=== PATIENT | female | born 1975 | race Caucasian/White ===

== ENCOUNTER 2022-02-18 20:09 | Emergency (ER) | payer MEDICAID, SELFPAY ==
--- NOTE | ~2022-02-18 | CT_ITS ---
EXAMINATION: CT ABDOMEN AND PELVIS WITHOUT CONTRAST CLINICAL INFORMATION: Right flank pain, rule out stone COMPARISON: CT abdomen pelvis 12/01/2008 TECHNIQUE: Multidetector volumetric imaging was performed from the superior aspect of the liver through the pubic symphysis. Sagittal and coronal reformatted images were obtained on the technologist's workstation. This CT examination was performed using dose optimization techniques as appropriate, variously including the following: *Automated exposure control *Adjustment of mA and/or kV according to patient size (this includes techniques or standardized protocols for targeted exams where dose is matched to indication/reason for exam; i.e. extremities or head) *Use of iterative reconstruction technique DLP: 658 mGy-cm FINDINGS: LUNG BASES: Calcified granuloma in the right middle lobe. Partially imaged right lower lobe pulmonary micronodule new from remote priors, 4:1. ABDOMINAL AND PELVIC WALL: Single ventral pelvic soft tissue surgical clip. LIVER AND BILIARY TREE: Unremarkable. GALLBLADDER: Status post cholecystectomy. PANCREAS: Unremarkable. SPLEEN: Unremarkable. ADRENAL GLANDS: Unremarkable. KIDNEYS AND URETERS: There is asymmetric right periureteral inflammatory stranding without deepa hydronephrosis raising suspicion for an obstructing or recently passed stone. The distal ureters were difficult to follow throughout their course in entirety making it difficult to identify with certainty if an obstructing stone remains present, however there are several calcifications in the right pelvis measuring 4 mm or less which could potentially reflect a stone, alternatively phleboliths. GASTROINTESTINAL TRACT: Small hiatal hernia. Colonic diverticulosis without evidence of diverticulitis. Normal appendix. VASCULAR: Unremarkable. LYMPH NODES/PERITONEUM: No lymphadenopathy. FREE FLUID: Trace simple physiologic volume free fluid in the pelvis. BLADDER: Unremarkable. PELVIC VISCERA: Multiple presacral surgical clips. OSSEOUS STRUCTURES: L5-S1 interbody disc spacer. CT/CT abdomen pelvis wo IV con IMPRESSION: * There is asymmetric right periureteral inflammatory stranding without deepa hydronephrosis raising suspicion for recently passed stone or possibly an obstructing stone. The distal ureters were difficult to follow throughout their course in entirety making it difficult to identify with certainty if an obstructing stone remains present, however there are several calcifications in the right pelvis measuring 4 mm or less which could potentially reflect a ureteral stone, alternatively phleboliths. Consider correlation with urinalysis and clinical symptoms. * Partially imaged right lower lobe pulmonary micronodule new from remote priors. Assuming patient has no history of malignancy, recommend follow-up per Fleischner Society recommendations. According to the UPDATED 2017 Fleischner Society recommendations, the advised followup imaging for solid nodules < 6 mm is: LOW RISK PATIENT: No routine follow up. HIGH RISK PATIENT: Optional CT at 12 months.
--- NOTE | ~2022-02-18 | US_ITS ---
EXAMINATION: US PELVIS CLINICAL INFORMATION: Pain COMPARISON: None TECHNIQUE: Ultrasound of the pelvis is performed using both transabdominal and transvaginal transducers along with Doppler. Transvaginal imaging is performed due to inadequate visualization transabdominally. FINDINGS: The uterus is measuring 8.1 x 4.1 x 4.5 cm. The endometrial thickness is measured at 1.2 cm characterized by mixed echogenicity. Probable small fibroid in the fundal region.. Measures 1.3 x 1.6 cm. The right ovary is 2.3 x 1.1 x 1.9 cm. Volume 2.5 mL. Normal ovarian vascularity. The left ovary is measuring 3.3 x 2 x 2.1 cm. Volume 7 mL. Vascularity is felt to be within normal limits. There is a small 1.5 x 1.4 cm cyst associated with the left ovary which is mildly complex. Mild free fluid adjacent to the fundus is noted. US/US pelvic and transvaginal IMPRESSION: No ultrasonographic evidence for ovarian torsion. Small cyst associated with left ovary is noted. Endometrial thickness is 1.2 cm characterized by mixed echogenicity. This could be normal for later phase of the cycle. Otherwise hyperplasia, polyp formation or other would be considered.
--- NOTE | ~2022-02-18 | US_ITS ---
EXAMINATION: US PELVIS CLINICAL INFORMATION: Pain COMPARISON: None TECHNIQUE: Ultrasound of the pelvis is performed using both transabdominal and transvaginal transducers along with Doppler. Transvaginal imaging is performed due to inadequate visualization transabdominally. FINDINGS: The uterus is measuring 8.1 x 4.1 x 4.5 cm. The endometrial thickness is measured at 1.2 cm characterized by mixed echogenicity. Probable small fibroid in the fundal region.. Measures 1.3 x 1.6 cm. The right ovary is 2.3 x 1.1 x 1.9 cm. Volume 2.5 mL. Normal ovarian vascularity. The left ovary is measuring 3.3 x 2 x 2.1 cm. Volume 7 mL. Vascularity is felt to be within normal limits. There is a small 1.5 x 1.4 cm cyst associated with the left ovary which is mildly complex. Mild free fluid adjacent to the fundus is noted. US/US pelvic ovarian doppler IMPRESSION: No ultrasonographic evidence for ovarian torsion. Small cyst associated with left ovary is noted. Endometrial thickness is 1.2 cm characterized by mixed echogenicity. This could be normal for later phase of the cycle. Otherwise hyperplasia, polyp formation or other would be considered.
[2022-02-18 20:13] VITALS: BP 168/100; PULSE 86; RESP 18; TEMP 37; O2SAT 98; BMI 33.5
[2022-02-18 20:28] LABS: MANUAL DIFF FLAG NO
[2022-02-18 20:33] LABS: Basophils Absolute Auto 0.1 X10*3/uL (0.0-0.2); Basophils Percent Auto 0.7 % (0-2); Eosinophils Absolute Auto 0.1 X10*3/uL (0.0-0.4); Hematocrit 37.1 % (37.0-47.0); Hemoglobin 12.3 g/dl (12.0-16.0); Imm Gran Abs Auto 0.02 X10*3/uL (0.00-0.03); Imm Gran Pct Auto 0.2 % (0.0-0.4); Lymphocytes Absolute Auto 3.6 X10*3/uL (1.2-4.9); Lymphocytes Percent Auto 33.6 % (20-40); Mean Corpuscular HGB Conc 33.2 g/dl (31.0-35.0); Mean Corpuscular Hemoglobin 31.2 pg (27.0-33.0); Mean Corpuscular Volume 94.2 fL (80.0-98.0); Mean Platelet Volume 10.5 fL (9.4-12.3); Monocytes Absolute Auto 0.8 X10*3/uL (0.1-1.2); Monocytes Percent Auto 7.5 % (2-11); Neutrophils Absolute Auto 6.1 x10*3/uL (2.0-8.3); Platelet Count 287 X10*3/uL (160-400); Red Blood Count 3.94 X10*6/uL (4.20-5.50); Red Cell Distribution Width 12.8 % (11.0-16.0); White Blood Count 10.7 X10*3/uL (4.8-10.8)
[2022-02-18 20:36] LABS: Appearance Urine Hazy; Color Urine Yellow; Glucose Urine UA Negative (Negative); Leukocyte Esterase Urine Moderate (2+) (Negative); Nitrite Urine Positive (Negative); PH 6.5 (5.0-9.0); Specific Gravity - Urine 1.025 (1.005-1.025); UMIC TRIGGER UACC YES; UPreg QC Valid YES; Urine Blood Large (3+) (Negative); Urine Ketones Negative (Negative); Urine Pregnancy NEGATIVE (NEGATIVE); Urine Protein 100 (2+) mg/dL (Neg-Trace)
[2022-02-18 20:45] LABS: COVID-19 Test Negative (Negative)
[2022-02-18 21:00] LABS: Alanine Aminotransferase 8 U/L (0-31); Albumin Level 4.4 g/dL (3.5-5.0); Alkaline Phosphatase 58 U/L (39-117); Anion Gap 17 (12-20); Aspartate Amino Transferase 15 U/L (5-31); Bilirubin Direct < 0.2 mg/dL (0.0-0.5); Bilirubin Total 0.2 mg/dL (0.0-1.0); Blood Urea Nitrogen 9 mg/dL (9-16); Calcium 9.6 mg/dL (8.4-10.2); Carbon Dioxide 23 mmol/L (22-29); Chloride 106 mmol/L (96-108); Creatinine Clr Calc Pharmacy 92.5; Estimated Glomerular Filt Rate > 60; Glucose Random 97 mg/dL (60-115); Lipase 38 U/L (8-78); Potassium 4.8 mmol/L (3.3-5.1); Sodium 141 mmol/L (135-145); Total Protein 7.2 g/dL (6.5-8.0)
[2022-02-18 21:21] LABS: UACC Culture Trigger YES; WBC Urine >50 /HPF (0-5)
[2022-02-18 21:22] LABS: Bacteria Urine 2+ (None Seen); Hyaline Casts Urine 0-2 /LPF (0-2); WBC Clumps Urine Present
[2022-02-18 21:52] VITALS: BP 128/86; PULSE 72; RESP 18; TEMP 37.2; O2SAT 99
--- NOTE | 2022-02-18 21:52 | ED.ABDPAIN ---
HPI - Abdominal Pain General Chief Complaint: Abdominal Pain Stated Complaint: Cyst on ovary, in pain Time Seen by Provider: 02/18/22 21:48 Source: patient Mode of arrival: ambulatory Limitations: no limitations History of Present Illness HPI narrative: Patient with dysuria frequency for last 3 4 days seen her PCP today start her on Macrobid. Earlier today patient noticed sudden onset of pain on the right side with no history of kidney stone assure nausea vomited 1 time no fever no chills no hematuria no history of kidney stone Related Data Previous Rx's Medication Instructions Recorded tramadol 50 mg tablet 50 mg PO Q6H PRN pain #20 tabs 02/19/22 Allergies Allergy/AdvReac Type Severity Reaction Status Date / Time No Known Allergies Allergy Unverified 01/10/20 16:58 Review of Systems Review of Systems Yes all other systems are reviewed and are negative [facility] Social History Social History Advance Directives: No Advance Directives Information Provided: No Physical Exam ED Vital Signs: Vital Signs - 24 hr 02/18/22 20:13 02/18/22 21:52 02/18/22 23:46 Temperature 98.6 F 98.9 F 98.1 F Pulse Rate 86 72 65 Respiratory Rate 18 18 16 Blood Pressure 168/100 H 128/86 136/82 Pulse Oximetry 98 99 97 Oxygen Delivery Method Room Air Room Air Room Air BMI result Body Mass Index 33.5 Appearance: Alert. Oriented X3. No acute distress. ENT: Pharynx normal. Oral Mucosa moist Neck: Normal inspection. Neck supple. CVS: Normal heart rate and rhythm. Pulses normal. Respiratory: No respiratory distress. Equal air entry bilateral, no wheezing/rales/rhonchi Abdomen: Soft and nontender. Bowel sounds are present, no mass palpable, right CVA tenderness Skin: Skin warm and dry. Normal skin color. Normal skin turgor. Extremities: No lower extremity edema. No calf tenderness Neuro: Oriented X 3. No motor deficit. No sensory deficit.No cerebellar signs , cranial nerves II-XII intact MDM - Abdominal Pain MDM Narrative Medical decision making narrative: Patient with UTI with right renal colic likely had a stone which passed given extra dose of IV antibiotic Rocephin CT scan negative for obstructing kidney stone likely she already passed the stone Lab Data Attestation: I reviewed the patient's lab results. Result diagrams: 02/18/22 20:22 02/18/22 20:22 Labs: Lab Results 02/18/22 02/18/22 02/18/22 Range/Units 20:22 20:22 20:22 WBC 10.7 (4.8-10.8) X10*3/uL RBC 3.94 L (4.20-5.50) X10*6/uL Hgb 12.3 (12.0-16.0) g/dl Hct 37.1 (37.0-47.0) % MCV 94.2 (80.0-98.0) fL MCH 31.2 (27.0-33.0) pg MCHC 33.2 (31.0-35.0) g/dl RDW 12.8 (11.0-16.0) % Plt Count 287 (160-400) X10*3/uL MPV 10.5 (9.4-12.3) fL Immature Gran % (Auto) 0.2 (0.0-0.4) % Neut % (Auto) 57.0 (45-73) % Lymph % (Auto) 33.6 (20-40) % [place] % (Auto) 7.5 (2-11) % Eos % (Auto) 1.0 (0-4) % Baso % (Auto) 0.7 (0-2) % Lymph # (Auto) 3.6 (1.2-4.9) X10*3/uL [place] # (Auto) 0.8 (0.1-1.2) X10*3/uL Eos # (Auto) 0.1 (0.0-0.4) X10*3/uL Baso # (Auto) 0.1 (0.0-0.2) X10*3/uL Abs Immat Gran (auto) 0.02 (0.00-0.03) X10*3/uL Absolute Neuts (auto) 6.1 (2.0-8.3) x10*3/uL Absolute Nucleated RBC 0.000 (0.0-0.012) X10*3/uL Nucleated RBC % (auto) 0.0 (0.0-0.2) /100WBC Sodium 141 (135-145) mmol/L Potassium 4.8 (3.3-5.1) mmol/L Chloride 106 (96-108) mmol/L Carbon Dioxide 23 (22-29) mmol/L Anion Gap 17 (12-20) BUN 9 (9-16) mg/dL Creatinine 0.78 (0.5-1.4) mg/dL Estim Creat Clear Calc 92.5 Estimated GFR > 60 Random Glucose 97 (60-115) mg/dL Calcium 9.6 (8.4-10.2) mg/dL Total Bilirubin 0.2 (0.0-1.0) mg/dL Direct Bilirubin < 0.2 (0.0-0.5) mg/dL AST 15 (5-31) U/L ALT 8 (0-31) U/L Alkaline Phosphatase 58 (39-117) U/L Total Protein 7.2 (6.5-8.0) g/dL Albumin 4.4 (3.5-5.0) g/dL Lipase 38 (8-78) U/L Urine Color Urine Appearance Urine pH (5.0-9.0) Ur Specific Shannock (1.005-1.025) Urine Protein (Neg-Trace) mg/dL Urine Glucose (UA) (Negative) mg/dL Urine Ketones (Negative) mg/dL Urine Blood (Negative) Urine Nitrite (Negative) Ur Leukocyte Esterase (Negative) Urine RBC (0-2) /HPF Urine WBC (0-5) /HPF Urine WBC Clumps Ur Squamous Epith Cells (0-2) /HPF Urine Bacteria (None Seen) Hyaline Casts (0-2) /LPF Urine Test (NEGATIVE) COVID-19 (GIAN) Negative (Negative) COVID-19 Clin Com See Note 02/18/22 02/18/22 Range/Units 20:22 20:22 WBC (4.8-10.8) X10*3/uL RBC (4.20-5.50) X10*6/uL Hgb (12.0-16.0) g/dl Hct (37.0-47.0) % MCV (80.0-98.0) fL MCH (27.0-33.0) pg MCHC (31.0-35.0) g/dl RDW (11.0-16.0) % Plt Count (160-400) X10*3/uL MPV (9.4-12.3) fL Immature Gran % (Auto) (0.0-0.4) % Neut % (Auto) (45-73) % Lymph % (Auto) (20-40) % [place] % (Auto) (2-11) % Eos % (Auto) (0-4) % Baso % (Auto) (0-2) % Lymph # (Auto) (1.2-4.9) X10*3/uL [place] # (Auto) (0.1-1.2) X10*3/uL Eos # (Auto) (0.0-0.4) X10*3/uL Baso # (Auto) (0.0-0.2) X10*3/uL Abs Immat Gran (auto) (0.00-0.03) X10*3/uL Absolute Neuts (auto) (2.0-8.3) x10*3/uL Absolute Nucleated RBC (0.0-0.012) X10*3/uL Nucleated RBC % (auto) (0.0-0.2) /100WBC Sodium (135-145) mmol/L Potassium (3.3-5.1) mmol/L Chloride (96-108) mmol/L Carbon Dioxide (22-29) mmol/L Anion Gap (12-20) BUN (9-16) mg/dL Creatinine (0.5-1.4) mg/dL Estim Creat Clear Calc Estimated GFR Random Glucose (60-115) mg/dL Calcium (8.4-10.2) mg/dL Total Bilirubin (0.0-1.0) mg/dL Direct Bilirubin (0.0-0.5) mg/dL AST (5-31) U/L ALT (0-31) U/L Alkaline Phosphatase (39-117) U/L Total Protein (6.5-8.0) g/dL Albumin (3.5-5.0) g/dL Lipase (8-78) U/L Urine Color Yellow Urine Appearance Hazy Urine pH 6.5 (5.0-9.0) Ur Specific Shannock 1.025 (1.005-1.025) Urine Protein 100 (2+) H (Neg-Trace) mg/dL Urine Glucose (UA) Negative (Negative) mg/dL Urine Ketones Negative (Negative) mg/dL Urine Blood Large (3+) H (Negative) Urine Nitrite Positive H (Negative) Ur Leukocyte Esterase Moderate (2+) H (Negative) Urine RBC 6-10 H (0-2) /HPF Urine WBC >50 (0-5) /HPF Urine WBC Clumps Present Ur Squamous Epith Cells 6-10 (0-2) /HPF Urine Bacteria 2+ (None Seen) Hyaline Casts 0-2 (0-2) /LPF Urine Test NEGATIVE (NEGATIVE) COVID-19 (GIAN) (Negative) COVID-19 Clin Com Discharge Plan Discharge Clinical Impression: Renal colic on right side, UTI (urinary tract infection) Patient Disposition: Home, Self-Care Instructions: Urinary Tract Infection in Women (ED), Renal Colic (ED) Additional Instructions: Drink plenty of fluids Likely you passed a kidney stone Continue antibiotics and follow with PCP Report to the ER if high fever/vomiting/worsening of pain Prescriptions: New tramadol 50 mg tablet 50 mg PO Q6H PRN (Reason: pain) Qty: 20 0RF
--- OUTSIDE RECORDS SUMMARY | 2022-02-18 22:17 | XMS_ITS | Continuity of Care Document ---
:1975 Author Organization [facility] Address [address] [place] [address]- Care Team Providers Name Role Phone Kinga Jones MD Primary Care Physician [place] [facility] [place]s): 08/03/21 - 09/02/21 [facility] [address] [place] [address]- Attending Physician: Dmitri Brar Admitting Physician: Dmitri Brar Referring Physician: Dmitri Brar Allergies, Adverse Reactions, Alerts Substance Reaction Severity Status acetaminophen Active Immunizations Given and Recorded Vaccine Date Status Refusal Reason pneumococcal 23-valent vaccine 05/06/10 Given Medications Advair Diskus 100 mcg-50 mcg inhalation powder 1, inhalation, Inhalation, 2 times a day, Refills 0, Maintenance, 01/31/20 12:37:00 EDT Start Date: 01/31/20 Status: Orderedalbuterol 0.083% inhalation solution 2 puffs, Inhalation, 2 times a day, 0 Refills, Maintenance, 01/31/20 12:35:00 EDT Start Date: 01/31/20 Status: Orderedamitriptyline 50 mg oral tablet 1 tablet = 50 mg, By Mouth, Daily at bedtime, 0 Refills, Maintenance, 01/31/20 12:37:00 EDT Start Date: 01/31/20 Status: OrderedamLODIPine 10 mg oral tablet 10 mg, 1, tablet, By Mouth, Daily, Refills 0, Maintenance, 01/31/20 12:35:00 EDT Start Date: 01/31/20 Status: OrderedHydrochlorothiazide = 25 mg, By Mouth, Daily, 0 Refills, Maintenance, 01/31/20 12:39:00 EDT Start Date: 01/31/20 Status: Orderedlisinopril 40 mg oral tablet 1 tablet = 40 mg, By Mouth, Daily, 0 Refills, Maintenance, 01/31/20 12:34:00 EDT Start Date: 01/31/20 Status: OrderedMeloxicam By Mouth, Daily, 0 Refills, Maintenance, 03/15/17 8:55:15 Start Date: 03/15/17 Status: OrderedPriLOSEC OTC 20 mg oral delayed release tablet 1 tablet = 20 mg, By Mouth, Daily, # 30 tablet, 11 Refills, Maintenance, 05/25/16 13:42:59 Start Date: 05/25/16 Status: OrderedPROzac 40 mg oral capsule 1 capsule = 40 mg, By Mouth, Daily, 0 Refills, Maintenance, 01/31/20 12:38:00 EDT Start Date: 01/31/20 Status: OrderedPulmicort Flexhaler 90 mcg Inhalation, 2 times a day, 0 Refills, Maintenance, 05/25/16 13:27:46 Start Date: 05/25/16 Status: OrderedWellbutrin 100 mg oral tablet = 100 mg, By Mouth, 2 times a day, 0 Refills, Maintenance, 01/31/20 12:38:00 EDT Start Date: 01/31/20 Status: OrderedZyrtec-D 1 tablet, By Mouth, 2 times a day, 0 Refills, Maintenance, 03/15/17 8:55:39 Start Date: 03/15/17 Status: Ordered Problem List Condition Effective Dates Status Health Status Informant Trigger point of abdomen(Confirmed) Active Adult ADHD(Confirmed) Active Anxiety disorder(Confirmed) Active Chronic bipolar disorder(Confirmed) Active Adult BMI 32.0-32.9 kg/sq m(Confirmed) Active Chronic pelvic pain in Active female(Confirmed) Disc disease, degenerative, lumbar or Active lumbosacral(Confirmed) Epigastric pain(Confirmed) Active H/O nausea and vomiting(Confirmed) Active H/O tubal ligation(Confirmed) Active Hematemesis/vomiting blood(Confirmed)1 Active 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
--- OUTSIDE RECORDS SUMMARY | 2022-02-18 22:17 | XMS_ITS | Continuity of Care Document ---
:1975 Author Organization [facility] ic Address [address] [place] [address]- Care Team Providers Name Role Phone Kinga Jones MD Primary Care Physician [place] [facility] [place] - 07/17/[address] [address] Attending Physician: Not on Staff, Attending MD Allergies, Adverse Reactions, Alerts Substance Reaction Severity [...]
--- OUTSIDE RECORDS SUMMARY | 2022-02-18 22:17 | XMS_ITS | Continuity of Care Document ---
:1975 Author Organization [facility] ic Address [address] [place] [address]- Care Team Providers Name Role Phone Kinga Jones MD Primary Care Physician En[place] [facility] [place] [id number] Date(s): 07/22/21 - 08/21/[address] [address] Attending Physician: Dmitri Brar Admitting Physician: Dmitri Brar Referring Physician: AdmtrDmitri Allergies, Adverse Reactions, Alerts Substance Reaction Severity [...]
--- OUTSIDE RECORDS SUMMARY | 2022-02-18 22:17 | XMS_ITS | Continuity of Care Document ---
:1975 Author Organization [facility] Address [address] [place] [address]- Care Team Providers Name Role Phone Kinga Jones MD Primary Care Physician Encounter [facility] [place] Date(s): 05/25/21 - 08/02/[address] [address] Attending Physician: Kinga Jones MD Admitting Physician: Kinga Jones MD Referring Physician: Kinga Jones MD Allergies, Adverse Reactions, Alerts Substance Reaction [...]
--- OUTSIDE RECORDS SUMMARY | 2022-02-18 22:17 | XMS_ITS | Continuity of Care Document ---
:1975 Author Organization [facility] Address [address] [place] [address]- Care Team Providers Name Role Phone Kinga Jones MD Primary Care Physician [place] [facility] [place] - 02/05/[address] [address] Discharge Disposition: A-D/C Home Attending Physician: Rui Clark DMD Admitting Physician: Rui Clark DMD Referring Physician: Rui Clark DMD Allergies, Adverse Reactions, Alerts Substance Reaction Severity [...] 01/31/20 12:35:00 EDT Start Date: 01/31/20 Status: Orderedalbuterol CFC free 90 mcg/inh inhalation aerosol Inhalation, 2 times a day, Refills 0, Maintenance, 01/31/20 12:36:00 EDT Start Date: 01/31/20 Status: Orderedamitriptyline 50 [...] abuse(Confirmed) Active 1??2 episodes from recurrent vomiting Vital Signs Most recent to oldest 1 2 3 [Reference Range]: Height 160.02 cm 160.02 cm (02/05/20 1:08 PM) (01/31/20 12:57 PM) Weight 75 kg 75 kg (02/05/20 1:08 PM) (01/31/20 12:57 PM) Oxygen Saturation 98 % 95 % 100 % [94-100 %] (02/05/20 4:00 PM) (02/05/20 3:45 PM) (02/05/20 3:15 PM) Pulse Rate [55-90 bpm] 57 bpm (02/05/20 1:08 PM) Body Mass Index 29.29 29.29 [18.5-24.99] *H* *H* (02/05/20 1:08 PM) (01/31/20 12:57 PM) Blood Pressure 166/96 mm Hg 124/108 mm Hg 140/75 mm Hg [90-138/55-84 mm Hg] *H* (02/05/20 3:45 PM) *H* (02/05/20 4:00 PM) (02/05/20 3:1 5 PM) Respiratory Rate [16-30 18 br/min 44 br/min 30 br/mi n br/min] (02/05/20 4:12 PM) *H* (02/05/20 3:4 5 PM) (02/05/20 4:00 PM) Temperature [96.8-100.4 98.2 DegF 97.9 DegF 98.8 Deg F DegF] (02/05/20 4:15 PM) (02/05/20 2:30 PM) (02/05/20 1:08 PM) Liters per Minute 3 L/min 3 L/min 4 L/min (02/05/20 3:15 PM) (02/05/20 3:00 PM) (02/05/20 2:30 PM) Mode of Delivery Room air Room air Room air (Oxygen) (02/05/20 4:00 PM) (02/05/20 3:45 PM) (02/05/20 3:30 PM) Blood pressure sites Arm, right Arm, right Arm, right (02/05/20 3:00 PM) (02/05/20 2:30 PM) (02/05/20 1:08 PM) Temperature Route Temporal Temporal Temporal (02/05/20 4:15 PM) (02/05/20 2:30 PM) (02/05/20 1:08 PM) Dry Weight 83.1 kg 75 kg (02/05/20 1:08 PM) (01/31/20 12:57 PM) Weight Obtained Via Patient/family stated (01/31/20 12:57 PM) Dry Weight Obtained Via Standing scale Patient/family stated (02/05/20 1:08 PM) (01/31/20 12:57 PM) Social History Social History Type Response Smoking Status Former smoker; Type: Cigaret eduardo; Tobacco use times per day: half pack a day; states quit 04/2016; entered on: 06/21/17 Sex
--- OUTSIDE RECORDS SUMMARY | 2022-02-18 22:17 | XMS_ITS | Continuity of Care Document ---
:1975 Author Organization [facility] ic Address [address] [place] [address]- Care Team Providers Name Role Phone Kinga Jones MD Primary Care Physician Encounter [facility] [place] Date(s): 07/09/21 - 08/21/[address] [address] Attending Physician: Not on Staff, Attending MD [...]
--- OUTSIDE RECORDS SUMMARY | 2022-02-18 22:17 | XMS_ITS | Continuity of Care Document ---
:1975 Author Organization [facility] ic Address [address] [place] [address]- Care Team Providers Name Role Phone Kinga Jones MD Primary Care Physician Encounter [facility] [place] Date(s): 04/26/21 - 06/19/[address] [address] Attending Physician: Not on Staff, Attending MD [...]
--- OUTSIDE RECORDS SUMMARY | 2022-02-18 22:17 | XMS_ITS | Continuity of Care Document ---
:1975 Author Organization [facility] Address [address] [place] [address]- Care Team Providers Name Role Phone Kinga Jones MD Primary Care Physician [place] [facility] [place] - 03/27/[address] [address] Attending Physician: Dmitri Brar Admitting Physician: Dmitri [...]
--- OUTSIDE RECORDS SUMMARY | 2022-02-18 22:17 | XMS_ITS | Continuity of Care Document ---
:1975 Author Organization [facility] ic Address [address] [place] [address]- Care Team Providers Name Role Phone Kinag Jones MD Primary Care Physician Encounter [facility] Date(s): 05/25/21 - 06/24/[address] [address] Allergies, Adverse Reactions, Alerts Substance Reaction Severity [...]
--- OUTSIDE RECORDS SUMMARY | 2022-02-18 22:17 | XMS_ITS | Continuity of Care Document ---
:1975 Author Organization [facility] ic Address [address] [place] [address]- Care Team Providers Name Role Phone Kigna Jones MD Primary Care Physician Encounter [facility] [place] Date(s): 06/24/21 - 07/31/[address] [address] Attending Physician: Not on Staff, Attending [...]
--- OUTSIDE RECORDS SUMMARY | 2022-02-18 22:17 | XMS_ITS | Continuity of Care Document ---
:1975 Author Organization [facility] ic Address [address] [place] [address]- Care Team Providers Name Role Phone Kinga Jones MD Primary Care Physician En[place] [facility] [place] Date(s): 06/04/21 - 07/04/[address] [address] Allergies, Adverse Reactions, Alerts Substance Reaction Severity [...]
--- OUTSIDE RECORDS SUMMARY | 2022-02-18 22:17 | XMS_ITS | Continuity of Care Document ---
:1975 Author Organization [facility] Address [address] [place] [address]- Care Team Providers Name Role Phone Kinga Jones MD Primary Care Physician En[place] [facility] [place] Date(s): 05/25/21 - 09/02/21 [facility] [address] [place] [address]- Attending Physician: Eddie Valdez MD Admitting Physician: Eddie Valdez MD Referring Physician: Afsaneh Ochoa MD Allergies, Adverse Reactions, Alerts Substance Reaction [...]
--- OUTSIDE RECORDS SUMMARY | 2022-02-18 22:17 | XMS_ITS | Continuity of Care Document ---
:1975 Author Organization [facility] p Address [address] [place] [address]- Care Team Providers Name Role Phone Kinga Jones MD Primary Care Physician [place] [facility] [place] 01/09/21 - 02/08/21 [facility] [address] Allergies, Adverse Reactions, Alerts Substance Reaction [...]
[2022-02-18] MEDS: Morphine Sulfate 4 MG/ML CARTRIDGE IVPUSH ×2 (22:34→23:34)
[2022-02-18] MEDS: Ketorolac Tromethamine 30 MG/ML VIAL IVPUSH (22:35)
[2022-02-18] MEDS: 0.9 % Sodium Chloride 1,000 ML 999 ML IV (22:35)
[2022-02-18] MEDS: ondansetron HCL 4 MG/2 ML VIAL IVPUSH (22:35)
--- NOTE | 2022-02-18 23:33 | PC.NURSE ---
Pt ambulate to bathroom. Pt asked for ice chips and nurse said, pt could have ice chips.
[2022-02-18] MEDS: cefTRIAXone sodium 1 GM in 0.9 % Sodium Chloride 50 ML IV (23:34)
[2022-02-18 23:46] VITALS: BP 136/82; PULSE 65; RESP 16; TEMP 36.7; O2SAT 97
[2022-02-19] MEDS: ondansetron HCL 4 MG/2 ML VIAL IVPUSH (00:14)
== END 2022-02-19 00:45 | disposition home or self-care (01) ==
PROVIDERS: Emergency Provider Internal Medicine; PCP Student in an Organized Health Care Education/Training Program
DX: N39.0 Urinary tract infection, site not specified (principal); N23 Unspecified renal colic; N94.89 Other specified conditions associated with female genital organs and menstrual cycle; Z20.822 Contact with and (suspected) exposure to COVID-19; Z79.899 Other long term (current) drug therapy
CPT/HCPCS: 74176; 76830; 76856; 80053; 81001; 81025; 82248; 83690; 85025; 87086; 87088; 87186; 87635; 93975; 96361; 96365; 96375; 96376; 99284; J0696; J1885; J2270; J2405

== ENCOUNTER 2022-03-30 10:46 | Emergency (ER) | payer MEDICAID, SELFPAY ==
--- NOTE | 2022-03-30 10:50 | ECG_ITS ---
Test Reason : numbness Blood Pressure : / mmHG Vent. Rate : 113 BPM Atrial Rate : 113 BPM P-R Int : 150 ms QRS Dur : 090 ms QT Int : 332 ms P-R-T Axes : 045 -12 015 degrees QTc Int : 455 ms Sinus tachycardia Otherwise normal ECG When compared with ECG of 10-JUL-2011 21:40, No significant change was found Referred By: Generic ED Physician Electronically Signed By:CARLOS JORDAN MD
[2022-03-30 10:57] VITALS: BP 139/86; PULSE 111; RESP 22; O2SAT 97; BMI 34.3
[2022-03-30 11:20] LABS: MANUAL DIFF FLAG NO
[2022-03-30 11:22] LABS: Basophils Absolute Auto 0.1 X10*3/uL (0.0-0.2); Eosinophils Absolute Auto 0.2 X10*3/uL (0.0-0.4); Eosinophils Percent Auto 1.9 % (0-4); Hematocrit 35.4 % (37.0-47.0); Hemoglobin 11.6 g/dl (12.0-16.0); Imm Gran Abs Auto 0.02 X10*3/uL (0.00-0.03); Imm Gran Pct Auto 0.2 % (0.0-0.4); Lymphocytes Absolute Auto 2.9 X10*3/uL (1.2-4.9); Mean Corpuscular HGB Conc 32.8 g/dl (31.0-35.0); Mean Corpuscular Hemoglobin 30.9 pg (27.0-33.0); Mean Corpuscular Volume 94.1 fL (80.0-98.0); Mean Platelet Volume 9.8 fL (9.4-12.3); Monocytes Absolute Auto 0.6 X10*3/uL (0.1-1.2); Monocytes Percent Auto 7.6 % (2-11); Neutrophils Absolute Auto 4.3 x10*3/uL (2.0-8.3); Neutrophils Percent Auto 53.3 % (45-73); Platelet Count 323 X10*3/uL (160-400); Red Blood Count 3.76 X10*6/uL (4.20-5.50); Red Cell Distribution Width 12.6 % (11.0-16.0)
[2022-03-30 11:24] LABS: Appearance Urine Cloudy; Color Urine Yellow; Glucose Urine UA Negative (Negative); Leukocyte Esterase Urine Negative (Negative); Nitrite Urine Negative (Negative); PH 5.5 (5.0-9.0); Urine Blood Negative (Negative); Urine Ketones Trace mg/dL (Negative); Urine Protein Negative (Neg-Trace)
[2022-03-30 12:07] LABS: Anion Gap 14 (12-20); Blood Urea Nitrogen 12 mg/dL (9-16); Calcium 9.3 mg/dL (8.4-10.2); Carbon Dioxide 23 mmol/L (22-29); Chloride 105 mmol/L (96-108); Creatinine Clr Calc Pharmacy 91.4; Estimated Glomerular Filt Rate > 60; Glucose Random 95 mg/dL (60-115); Potassium 4.4 mmol/L (3.3-5.1); Sodium 138 mmol/L (135-145)
[2022-03-30 13:21] LABS: Amphetamine Screen Urine POSITIVE (Not Detect); Barbiturates, Urine Not Detected (Not Detect); Benzodiazepines Screen Urine Not Detected (Not Detect); Cannabinoid Screen Urine POSITIVE (Not Detect); Cocaine Screen Urine POSITIVE (Not Detect); Fentanyl, urine Not Detected (Not Detect); Opiate Screen Urine Not Detected (Not Detect); Phencyclidine Screen Urine Not Detected (Not Detect)
--- NOTE | 2022-03-30 19:09 | PC.NURSE ---
pt not in waiting room at the onset of shift 190
== END 2022-03-30 19:11 | disposition left against medical advice (07) ==
PROVIDERS: Emergency Provider Emergency Medicine; PCP Student in an Organized Health Care Education/Training Program
DX: R07.89 Other chest pain (principal); Z79.899 Other long term (current) drug therapy
CPT/HCPCS: 36415; 80048; 80307; 81003; 85025; 93005; 99283

== ENCOUNTER 2022-12-22 10:24 | Outpatient (REF) | payer MEDICAID, SELFPAY ==
[2022-12-22 15:45] LABS: MANUAL DIFF FLAG NO
[2022-12-22 15:50] LABS: Basophils Absolute Auto 0.1 X10*3/uL (0.0-0.2); Basophils Percent Auto 0.6 % (0-2); Eosinophils Absolute Auto 0.2 X10*3/uL (0.0-0.4); Eosinophils Percent Auto 1.8 % (0-4); Hematocrit 38.8 % (37.0-47.0); Hemoglobin 12.9 g/dl (12.0-16.0); Imm Gran Abs Auto 0.05 X10*3/uL (0.00-0.03); Imm Gran Pct Auto 0.5 % (0.0-0.4); Lymphocytes Percent Auto 27.7 % (20-40); Mean Corpuscular HGB Conc 33.2 g/dl (31.0-35.0); Mean Corpuscular Hemoglobin 30.9 pg (27.0-33.0); Mean Corpuscular Volume 92.8 fL (80.0-98.0); Mean Platelet Volume 10.8 fL (9.4-12.3); Monocytes Absolute Auto 0.7 X10*3/uL (0.1-1.2); Monocytes Percent Auto 6.4 % (2-11); Neutrophils Absolute Auto 6.9 x10*3/uL (2.0-8.3); Platelet Count 357 X10*3/uL (160-400); Red Blood Count 4.18 X10*6/uL (4.20-5.50); Red Cell Distribution Width 12.2 % (11.0-16.0); White Blood Count 10.9 X10*3/uL (4.8-10.8)
[2022-12-22 16:13] LABS: Alanine Aminotransferase 10 U/L (0-31); Albumin Level 4.3 g/dL (3.5-5.0); Alkaline Phosphatase 74 U/L (39-117); Anion Gap 13 (12-20); Aspartate Amino Transferase 13 U/L (5-31); Bilirubin Direct 0.1 mg/dL (0.0-0.5); Bilirubin Total 0.3 mg/dL (0.0-1.0); Blood Urea Nitrogen 15 mg/dL (9-16); Calcium 9.9 mg/dL (8.4-10.2); Carbon Dioxide 24 mmol/L (22-29); Chloride 104 mmol/L (96-108); Cholesterol 196 mg/dL (<200); Estimated Glomerular Filt Rate > 60; Glucose Fasting 85 mg/dL (60-99); HDL Cholesterol 43 mg/dL (>40); LDL Cholesterol Calculated 124 mg/dL (<100); Sodium 137 mmol/L (135-145); Total Protein 7.4 g/dL (6.5-8.0); Triglycerides 147 mg/dL (<150)
[2022-12-22 16:21] LABS: TSH reflex Free T4 1.61 uIU/mL (0.32-4.0); Vitamin D 25-OH Total 53.7 ng/mL (>30)
[2022-12-22 16:42] LABS: Creatinine Urine 228.76 mg/dL; Microalbum/Creatinine Ratio Ur 3.4 ug/mg cr (<30)
[2022-12-22 21:09] LABS: INTERNATIONAL NORM RATIO 0.9 (0.9-1.1); Prothrombin Time 10.9 SEC (11.1-13.3)
== END 2022-12-22 10:25 | disposition home or self-care (01) ==
LOC: HO.CHCLDS 10:24
PROVIDERS: Visit Provider Pediatrics
DX: Z01.818 Encounter for other preprocedural examination (principal); E78.5 Hyperlipidemia, unspecified
CPT/HCPCS: 36415; 80048; 80061; 80076; 82043; 82306; 84443; 85025; 85610

== ENCOUNTER 2024-01-26 09:04 | Outpatient (REF) | payer MEDICAID, SELFPAY ==
[2024-01-26 14:09] LABS: MANUAL DIFF FLAG NO
[2024-01-26 14:19] LABS: Basophils Absolute Auto 0.1 X10*3/uL (0.0-0.2); Basophils Percent Auto 0.9 % (0-2); Eosinophils Absolute Auto 0.2 X10*3/uL (0.0-0.4); Eosinophils Percent Auto 2.1 % (0-4); Hematocrit 36.1 % (37.0-47.0); Hemoglobin 11.7 g/dl (12.0-16.0); Imm Gran Abs Auto 0.04 X10*3/uL (0.00-0.03); Imm Gran Pct Auto 0.4 % (0.0-0.4); Lymphocytes Percent Auto 39.6 % (20-40); Mean Corpuscular HGB Conc 32.4 g/dl (31.0-35.0); Mean Corpuscular Hemoglobin 29.9 pg (27.0-33.0); Mean Corpuscular Volume 92.3 fL (80.0-98.0); Mean Platelet Volume 10.9 fL (9.4-12.3); Monocytes Absolute Auto 0.6 X10*3/uL (0.1-1.2); Monocytes Percent Auto 6.2 % (2-11); Neutrophils Absolute Auto 5.1 x10*3/uL (2.0-8.3); Neutrophils Percent Auto 50.8 % (45-73); Platelet Count 360 X10*3/uL (160-400); Red Blood Count 3.91 X10*6/uL (4.20-5.50); Red Cell Distribution Width 12.9 % (11.0-16.0); White Blood Count 10.1 X10*3/uL (4.8-10.8)
[2024-01-26 14:34] LABS: Alanine Aminotransferase 16 U/L (0-31); Albumin Level 3.9 g/dL (3.5-5.0); Alkaline Phosphatase 86 U/L (39-117); Anion Gap 11 (12-20); Aspartate Amino Transferase 14 U/L (5-31); Bilirubin Direct < 0.2 mg/dL (0.0-0.5); Bilirubin Total 0.2 mg/dL (0.0-1.0); Blood Urea Nitrogen 11 mg/dL (9-16); Calcium 9.4 mg/dL (8.4-10.2); Carbon Dioxide 25 mmol/L (22-29); Chloride 106 mmol/L (96-108); Cholesterol 204 mg/dL (<200); Estimated Glomerular Filt Rate > 60; Glucose Random 94 mg/dL (60-115); HDL Cholesterol 38 mg/dL (>40); LDL Cholesterol Calculated 122 mg/dL (<100); Potassium 3.9 mmol/L (3.3-5.1); Sodium 138 mmol/L (135-145); Triglycerides 222 mg/dL (<150)
[2024-01-26 14:48] LABS: Ferritin 22 ng/mL (10-250)
== END 2024-01-26 09:05 | disposition home or self-care (01) ==
LOC: HO.CHCLDS 09:04
PROVIDERS: Visit Provider Student in an Organized Health Care Education/Training Program
DX: I10 Essential (primary) hypertension (principal); G25.81 Restless legs syndrome
CPT/HCPCS: 36415; 80048; 80061; 80076; 82728; 85025

== ENCOUNTER 2024-03-20 12:09 | Outpatient (REF) | payer MEDICAID, SELFPAY ==
[2024-03-21 08:59] LABS: Bacterial Vaginosis PCR POSITIVE (Negative); Candida Group PCR NOT DETECTED (Not Detect); Candida glab krusei PCR NOT DETECTED (Not Detect); Trichomonas vaginalis PCR NOT DETECTED (Not Detect)
[2024-03-21 11:05] LABS: HPV 16,18/45 See PAP report
[2024-03-25 22:08] LABS: C. trachomatis RNA TMA Not Detected (Not Detected); N. gonorrhoeae RNA TMA Not Detected (Not Detected); Trichomonas (NAAT) Not Detected (Not Detected)
== END 2024-03-20 12:10 | disposition home or self-care (01) ==
LOC: HO.CHCLNP 12:09
PROVIDERS: Visit Provider Family Medicine
DX: Z12.4 Encounter for screening for malignant neoplasm of cervix (principal); R30.0 Dysuria; N76.0 Acute vaginitis
CPT/HCPCS: 0352U; 87086; 87088; 87186; 87491; 87591; 87624; 87661; 88175